=== PATIENT | male | born 2000 | race African-American/Black ===

== ENCOUNTER 2019-02-05 09:38 | Emergency (ER) | payer SELFPAY ==
[~2019-02-05] VITALS: Ht 175.3 cm; Wt 63.5 kg
[2019-02-05 09:42] VITALS: BP 114/65; PULSE 55; RESP 16; Ht 175.3 cm; Wt 63.5 kg
[2019-02-05] MEDS ORDERED: MUPI22OI2 TOP (10:14)
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
[2019-02-05] MEDS ORDERED: DIPHTH/TET/ACEL PERTUSS (ADULT) 0.5 ML VIAL IM* ONE (10:30)
== END 2019-02-05 10:45 | disposition home or self-care (01) ==
LOC: FTE 09:38
DX: S40.811A Abrasion of right upper arm, initial encounter (principal); W50.4XXA Accidental scratch by another person, initial encounter; Y92.89 Other specified places as the place of occurrence of the external cause; Z23 Encounter for immunization
CPT/HCPCS: 90471; 90715